=== PATIENT | male | born 1965 | race Caucasian/White ===

== ENCOUNTER 2019-06-22 16:52 | Observation (INO) ==
[2019-06-22] MEDS ORDERED: Ipratropium/Albuterol Neb 3 ML IH ONE (18:05)
[2019-06-22] MEDS ORDERED: 0.9 % Sodium Chloride 1,000 ML IVC ONE (18:06)
[2019-06-22] MEDS ORDERED: Azithromycin 500 MG in 0.9 % Sodium Chloride 250 ML IVPB ONE (18:09)
[2019-06-22] MEDS ORDERED: Mag Hydrox/Al Hydrox/Simeth 30 ML UDC PO PRN (18:20)
[2019-06-22] MEDS ORDERED: Ondansetron 4 MG/2 ML VIAL IVP PRN (18:20)
[2019-06-22] MEDS ORDERED: Naloxone 0.4 MG/ML INJ IVP PRN (18:20)
[2019-06-22] MEDS ORDERED: MOM Conc 10 ML UD.LIQ PO PRN (18:20)
[2019-06-22 18:21] LABS: Basophils % 0.4 %; Eosinophils % 0.2 %; Hematocrit 39.8 % (37.5-50.1); Hemoglobin 13.2 g/dL (12.9-16.9); Immature Granulocytes % 0.6 % (0-4); Lymphocytes # 0.2 K/mcL (0.6-4.6); Lymphocytes % 4.7 %; Mean Corpuscular HGB Conc 33.2 g/dL (31.6-35.5); Mean Corpuscular Hemoglobin 30.9 pg (28.0-33.3); Mean Corpuscular Volume 93.2 fL (83.0-100.0); Mean Platelet Volume 11.7 fL (9.4-12.4); Monocytes # 0.5 K/mcL (0.0-1.3); Monocytes % 10.3 %; Neutrophils # 3.9 K/mcL (1.6-8.9); Platelet Count 119 K/mcL (140-400); Red Blood Count 4.27 M/mcL (4.19-5.50); Red Cell Distribution Width 13.5 % (11.5-14.5); Segmented Neutrophils % 83.8 %; White Blood Count 4.7 K/mcL (4.3-11.1)
[2019-06-22] MEDS ORDERED: Ibuprofen 400 MG TABLET PO PRN (18:24)
[2019-06-22] MEDS ORDERED: 0.9 % Sodium Chloride 1,000 ML IVC SCH (18:30)
[2019-06-22 18:40] LABS: BUN/Creatinine Ratio 12 (6-26); Blood Urea Nitrogen 18 mg/dL (6-20); Calcium 8.3 mg/dL (8.6-10.3); Carbon Dioxide 26 mEq/L (23-29); Chloride 98 mEq/L (98-107); Glucose 124 mg/dL (70-105); Osmolality,Calculated 277 (280-300); Potassium 4.4 mEq/L (3.5-5.1); Sodium 132 mEq/L (136-145); eGFR For African Americans > 60 (> 60); eGFR For Non-African Americans 50 (> 60)
[2019-06-22] MEDS: Nicotine 21 MG PATCH.TD24 TD SCH (18:58)
[2019-06-23 06:24] LABS: Basophils % 0.3 %; Hemoglobin 12.2 g/dL (12.9-16.9); Immature Granulocytes % 0.6 % (0-4); Lymphocytes # 0.5 K/mcL (0.6-4.6); Lymphocytes % 16.5 %; Mean Corpuscular HGB Conc 32.1 g/dL (31.6-35.5); Mean Corpuscular Hemoglobin 30.7 pg (28.0-33.3); Mean Corpuscular Volume 95.7 fL (83.0-100.0); Mean Platelet Volume 11.6 fL (9.4-12.4); Monocytes # 0.6 K/mcL (0.0-1.3); Monocytes % 18.4 %; Platelet Count 113 K/mcL (140-400); Red Blood Count 3.97 M/mcL (4.19-5.50); Red Cell Distribution Width 14.3 % (11.5-14.5); Segmented Neutrophils % 64.2 %; White Blood Count 3.1 K/mcL (4.3-11.1)
[2019-06-23 07:06] LABS: Calcium 8.1 mg/dL (8.6-10.3); Potassium 4.4 mEq/L (3.5-5.1)
[2019-06-23] MEDS ORDERED: Acetaminophen 325 MG TABLET PO PRN (08:59)
[2019-06-23] MEDS ORDERED: Aspirin Enteric Coated 81 MG Tablet PO SCH (09:00)
[2019-06-23] MEDS: Nicotine 21 MG PATCH.TD24 TD SCH (09:33)
[2019-06-23] MEDS: MethylPREDNISolone 40 MG/ML VIAL IVP SCH ×2 (09:33→17:11)
[2019-06-23 09:48] LABS: Adenovirus Not Detected (Not Detect); Bordetella Pertussis Not Detected (Not Detect); Chlamydophila pneumoniae Not Detected (Not Detect); Coronavirus 229E Not Detected (Not Detect); Coronavirus HKU1 Not Detected (Not Detect); Coronavirus NL63 Not Detected (Not Detect); Coronavirus OC43 Not Detected (Not Detect); Human Metapneumovirus Not Detected (Not Detect); Human Rhinovirus/Enterovirus Not Detected (Not Detect); Influenza B Not Detected (Not Detect); Parainfluenza Virus 1 Not Detected (Not Detect); Parainfluenza Virus 2 Not Detected (Not Detect); Parainfluenza Virus 3 Not Detected (Not Detect); Parainfluenza Virus 4 Not Detected (Not Detect); Respiratory Syncytial Virus Not Detected (Not Detect)
[2019-06-23 09:49] LABS: Mycoplasma pneumoniae Not Detected (Not Detect)
[2019-06-23 09:52] LABS: Influenza A Subtype 2009 H1 DETECTED (Not Detect)
[2019-06-23] MEDS ORDERED: cefTRIAXone 1,000 MG in 0.9 % Sodium Chloride Mini Bag 100 ML IVPB SCH (10:00)
[2019-06-23] MEDS ORDERED: 0.9 % Sodium Chloride 1,000 ML IVC ONE (11:27)
[2019-06-23] MEDS: Ipratropium/Albuterol Neb 3 ML IH SCH ×3 (13:04→20:16)
[2019-06-24] MEDS: MethylPREDNISolone 40 MG/ML VIAL IVP SCH (00:05)
[2019-06-24] MEDS: Ipratropium/Albuterol Neb 3 ML IH SCH ×5 (00:14→16:03)
[2019-06-24 07:16] VITALS: BP 100/63
[2019-06-24] MEDS ORDERED: 0.9 % Sodium Chloride (Mini-Bag +) 100 ML IVBAG ONE (09:51)
[2019-06-24] MEDS ORDERED: MethylPREDNISolone 40 MG/ML VIAL ONE (09:51)
[2019-06-24] MEDS ORDERED: Aspirin Enteric Coated 81 MG Tablet PO ONE (09:51)
[2019-06-24] MEDS ORDERED: Nicotine 21 MG PATCH.TD24 ONE (09:51)
[2019-06-24] MEDS ORDERED: CefTRIAXone 1,000 MG VIAL ONE (09:51)
[2019-06-24 17:11] LABS: Creatinine,Urine 93 mg/dL
== END 2019-06-24 11:48 | disposition home or self-care (01) ==
LOC: EMEROOPIK 16:52 → INPPIK 16:52
PROVIDERS: ADMIT Family Medicine; ATTEND Family Medicine